=== PATIENT | male | born 1935 | race Two or more races ===

== ENCOUNTER 2016-03-30 17:03 | Inpatient (IN) | payer OTHER ==
[~2016-03-30] VITALS: Ht 177.8 cm; Wt 81.7 kg
[~2016-03-30 17:03] MED LIST: NEXIUM40 MG PO; THYRONORM PO; ZANTAC150 MG PO; [UNRECOGNIZED DRUG - OTHER] PO; [UNRECOGNIZED DRUG - OTHER] PO
[2016-03-30 17:40] LABS: HEMATOCRIT 38.8 % (38.0-50.0); MCH 33.3 PG (29.0-34.0); MCHC 34.8 G/DL (30.0-36.0); MCV 95.6 FL (86-99); MEAN PLAT.VOLUME 10.7 uM^3 (9.0-12.4); PLATELET COUNT 161 K/uL (156-360); RBC DIS.WIDTH-CV 12.1 % (11.8-14.6); RBC DIS.WIDTH-SD 41.4 % (39-53); RED BLOOD COUNT 4.06 M/uL (4.00-5.50); WHITE BLOOD COUNT 8.2 K/uL (4.1-10.2)
[2016-03-30 17:55] LABS: CHLORIDE 93 mEq/L (99-109); SODIUM 123 mEq/L (136-147)
[2016-03-30 17:59] LABS: ANION GAP 11 MEQ/L (2-14)
[2016-03-30 18:00] LABS: TOTAL BILIRUBIN 0.8 mg/dL (0.0-1.0)
[2016-03-30 18:01] LABS: ALKALINE PHOSPHATASE 152 IU/L (3-129)
[2016-03-30 18:02] LABS: UREA NITROGEN (BUN) 18 mg/dL (9-23)
[2016-03-30 18:03] LABS: GFR ESTIMATE (CALCULATED) 34 mL/min/; GLUCOSE 762 mg/dL (70-99); POTASSIUM 5.8 mEq/L (3.7-5.4)
[2016-03-30 19:40] LABS: Estimated Average Glucose 424 mg/dL (70-123)
[2016-03-30 19:41] LABS: HEMOGLOBIN A1c (GLYCOHEMOGLOB) 16.4 % HGB (Below 5.7)
[2016-03-30 21:12] LABS: TROP-I INTERPRETATION NEGATIVE; TROPONIN-I 0.01 ng/mL (0.0-0.30)
[2016-03-30 22:37] LABS: POINT-OF-CARE METER ID UU14100415
[2016-03-31 00:27] LABS: POINT-OF-CARE METER ID UU14100415
[2016-03-31 03:10] LABS: ADD MIUA? NO; BILIRUBIN NEGATIVE; BLOOD NEGATIVE; COLOR YELLOW ((YELLOW)); GLUCOSE (STRIP) >=500; KETONES NEGATIVE; LEUKOCYTES NEGATIVE; NITRITE NEGATIVE; PROTEIN (STRIP) NEGATIVE; SPECIFIC GRAVITY 1.015 (1.000-1.030); UCUL ADDED? NO; UROBILINOGEN 0.2 MG/DL (0.2-1.0)
[2016-03-31 04:51] LABS: TROP-I INTERPRETATION NEGATIVE; TROPONIN-I 0.02 ng/mL (0.0-0.30)
[2016-03-31 07:14] LABS: ANION GAP 8 MEQ/L (2-14); SAMPLE HEMOLYSIS CHECK 2; SAMPLE ICTERIC CHECK 0; SAMPLE LIPEMIA CHECK 0
[2016-03-31 07:20] LABS: UREA NITROGEN (BUN) 14 mg/dL (9-23)
[2016-03-31 07:21] LABS: CHLORIDE 105 MEQ/L (99-109); GFR ESTIMATE (CALCULATED) > 59 mL/min/; GLUCOSE 194 mg/dL (70-99); SODIUM 133 MEQ/L (136-147)
[2016-03-31 07:30] LABS: POINT-OF-CARE METER ID UU13113702; POINT-OF-CARE USER ID AHSDISBJH
[2016-03-31 11:32] LABS: POINT-OF-CARE METER ID UU13113702
[2016-03-31 13:10] VITALS: BP 164/77
[2016-03-31 14:25] LABS: TROP-I INTERPRETATION NEGATIVE; TROPONIN-I 0.01 ng/mL (0.0-0.30)
[2016-03-31 15:10] VITALS: BP 152/71
[2016-03-31 16:15] LABS: POINT-OF-CARE METER ID UU14149398
[2016-03-31 21:39] LABS: POINT-OF-CARE METER ID UU14149398
[2016-03-31 23:20] VITALS: BP 132/66
[2016-04-01 07:26] LABS: HDL CHOLESTEROL 24 MG/DL (Desirable>=40); LDL CHOLESTEROL 71 mg/dL (Desirable<100); NON-HDL CHOLESTEROL 116 mg/dL (Desirable<160); TOTAL CHOLESTEROL 140 mg/dL (Desirable<200); TRIGLYCERIDES 227 MG/DL (Normal: <150)
[2016-04-01 07:29] VITALS: BP 169/80
[2016-04-01 07:44] LABS: POINT-OF-CARE METER ID UU14149396
[2016-04-01 11:17] VITALS: BP 143/68
[2016-04-01 11:25] LABS: POINT-OF-CARE METER ID UU14149396
[2016-04-01 15:40] VITALS: BP 181/83
[2016-04-01 15:46] LABS: POINT-OF-CARE METER ID UU14149396
[2016-04-01 20:27] LABS: POINT-OF-CARE METER ID UU14149396
[2016-04-01 23:30] VITALS: BP 130/67
[2016-04-02 07:27] VITALS: BP 123/62
[2016-04-02 07:34] LABS: POINT-OF-CARE METER ID UU14149396
[2016-04-02] MEDS ORDERED: LOPRESSOR25 MG PO (09:02)
[2016-04-02] MEDS ORDERED: METFORMIN HCL500 MG PO (09:02)
[2016-04-02] MEDS ORDERED: LEVEMIR100 UNIT/2 SC (09:02)
[2016-04-02] MEDS ORDERED: ASPIRIN EC325 MG PO (09:02)
[2016-04-02] MEDS ORDERED: LEVOTHYROXINE25 MCG PO (09:02)
[2016-04-02] MEDS ORDERED: TAMSULOSIN HCL0.4 MG PO (09:02)
[2016-04-02 11:16] VITALS: BP 163/92
[2016-04-02 11:23] LABS: POINT-OF-CARE METER ID UU13113807
[2016-04-02 11:48] LABS: POINT-OF-CARE METER ID UU13113778
[2016-04-02 11:49] LABS: POINT-OF-CARE METER ID UU14100415; POINT-OF-CARE USER ID NUTMMM10
== END 2016-04-02 13:00 | disposition home health service (06) | DRG 638 ==
LOC: EME 17:03 → 4SOUTH 20:20 → EDOF 20:20 → 4SOUTH 03-31 12:55
PROVIDERS: Internal Medicine; Physician Assistant
DX: E11.65 Type 2 diabetes mellitus with hyperglycemia (principal); E87.1 Hypo-osmolality and hyponatremia; N18.3 Chronic kidney disease, stage 3 (moderate); I12.9 Hypertensive chronic kidney disease with stage 1 through stage 4 chronic kidney disease, or unspecified chronic kidney disease; K76.0 Fatty (change of) liver, not elsewhere classified; K21.9 Gastro-esophageal reflux disease without esophagitis; E03.9 Hypothyroidism, unspecified; E11.22 Type 2 diabetes mellitus with diabetic chronic kidney disease; N40.0 Benign prostatic hyperplasia without lower urinary tract symptoms; R00.1 Bradycardia, unspecified; I44.0 Atrioventricular block, first degree; R94.31 Abnormal electrocardiogram [ECG] [EKG]; E78.5 Hyperlipidemia, unspecified; J98.4 Other disorders of lung; I25.6 Silent myocardial ischemia
CPT/HCPCS: 36415; 71020; 80053; 80061; 80069; 81003; 82010; 82948; 83036; 83930; 83935; 84439; 84443; 84484; 85027; 93005; 93306; 99281; 99285; J1650; J1815; J7030